=== PATIENT | male | born 1970 ===

== ENCOUNTER 2021-05-13 13:00 | Inpatient (IN) | payer OTHER ==
[2021-05-13] MEDS ORDERED: Morphine 10 MG/0.5 ML Oral Syringe PO PRN (14:17)
[2021-05-13] MEDS ORDERED: Hyoscyamine 0.125 MG Tab.SL SL PRN (14:24)
[2021-05-13] MEDS ORDERED: Acetaminophen 80 MG Supp RECTAL PRN (14:28)
[2021-05-13] MEDS ORDERED: Acetaminophen 325 MG Supp RECTAL PRN (15:08)
[2021-05-13] MEDS: Morphine 10 MG/0.5 ML Oral Syringe PO SCH ×2 (15:18→19:56)
[2021-05-13] MEDS: LORazepam Conc Solution 2 MG/ML 30 ML Bottle SL SCH ×3 (15:58→22:37)
[2021-05-13] MEDS ORDERED: LORazepam 1 MG Tab PRN (16:02)
[2021-05-14] MEDS: Morphine 10 MG/0.5 ML Oral Syringe PO SCH (00:10)
[2021-05-14] MEDS: LORazepam Conc Solution 2 MG/ML 30 ML Bottle SL SCH (04:39)
== END 2021-05-14 03:45 | disposition still patient (30) | DRG 951 ==
LOC: MW.MS 13:00
PROVIDERS: ADMIT Internal Medicine; ATTEND Internal Medicine
DX: Z51.5 Encounter for palliative care (principal); R17 Unspecified jaundice; Z75.5 Holiday relief care; R56.9 Unspecified convulsions
CPT/HCPCS: A9270-GY